=== PATIENT | male | born 1990 | race Caucasian/White ===

== ENCOUNTER → 2017-07-25 | Outpatient (CLI) | payer BC, SELFPAY | PROVIDERS: Visit Provider Emergency Medicine | DX: Z79.899 Other long term (current) drug therapy (principal) | CPT/HCPCS: 80305 ==

== ENCOUNTER → 2017-09-22 11:27 | Outpatient (CLI) | payer BC, SELFPAY ==
[2017-09-22 19:17] LABS: Amphetamine/Metha Screen,Urine Positive ng/mL (<1000); Barbiturates Screen,Urine Negative ng/mL (<200); Benzodiazepines Screen,Urine Negative ng/mL (200); Cannabinoid Screen,Urine Negative ng/mL (<50); Cocaine Screen,Urine Negative ng/g (<300); Methadone Screen,Urine Negative ng/mL (<300); Opiate Screen,Urine Negative ng/mL (<300); Phencyclidine Screen,Urine Negative ng/mL (<25)
== END ==
PROVIDERS: Visit Provider Emergency Medicine
DX: Z79.899 Other long term (current) drug therapy (principal)
CPT/HCPCS: 80305

== ENCOUNTER → 2017-11-01 11:40 | Outpatient (CLI) | payer BC, SELFPAY ==
[2017-11-01 15:23] LABS: Amphetamine/Metha Screen,Urine Positive ng/mL (<1000); Barbiturates Screen,Urine Negative ng/mL (<200); Benzodiazepines Screen,Urine Negative ng/mL (200); Cannabinoid Screen,Urine Negative ng/mL (<50); Cocaine Screen,Urine Negative ng/g (<300); Methadone Screen,Urine Negative ng/mL (<300); Opiate Screen,Urine Negative ng/mL (<300); Phencyclidine Screen,Urine Negative ng/mL (<25)
== END ==
PROVIDERS: Visit Provider Emergency Medicine
DX: Z79.899 Other long term (current) drug therapy (principal)
CPT/HCPCS: 80305

== ENCOUNTER → 2017-12-27 11:11 | Outpatient (REF) | payer BC, SELFPAY ==
[2017-12-27 18:08] LABS: Amphetamine/Metha Screen,Urine Positive ng/mL (<1000); Barbiturates Screen,Urine Negative ng/mL (<200); Benzodiazepines Screen,Urine Negative ng/mL (200); Cannabinoid Screen,Urine Negative ng/mL (<50); Cocaine Screen,Urine Negative ng/g (<300); Methadone Screen,Urine Negative ng/mL (<300); Opiate Screen,Urine Negative ng/mL (<300); Phencyclidine Screen,Urine Negative ng/mL (<25)
== END ==
LOC: LAB 11:11
PROVIDERS: Visit Provider Emergency Medicine
DX: Z79.899 Other long term (current) drug therapy (principal)
CPT/HCPCS: 80305

== ENCOUNTER → 2018-01-29 10:13 | Outpatient (REF) | payer BC, SELFPAY ==
[2018-01-29 14:21] LABS: Amphetamine/Metha Screen,Urine Positive ng/mL (<1000); Barbiturates Screen,Urine Negative ng/mL (<200); Benzodiazepines Screen,Urine Negative ng/mL (200); Cannabinoid Screen,Urine Negative ng/mL (<50); Cocaine Screen,Urine Negative ng/g (<300); Methadone Screen,Urine Negative ng/mL (<300); Opiate Screen,Urine Negative ng/mL (<300); Phencyclidine Screen,Urine Negative ng/mL (<25)
== END ==
LOC: LAB 10:13
PROVIDERS: Visit Provider Emergency Medicine
DX: Z79.899 Other long term (current) drug therapy (principal)
CPT/HCPCS: 80305

== ENCOUNTER → 2018-03-23 10:20 | Outpatient (REF) | payer BC, SELFPAY ==
[2018-03-23 14:45] LABS: Amphetamine/Metha Screen,Urine Positive ng/mL (<1000); Barbiturates Screen,Urine Negative ng/mL (<200); Benzodiazepines Screen,Urine Negative ng/mL (<200); Cannabinoid Screen,Urine Negative ng/mL (<50); Cocaine Screen,Urine Negative ng/mL (<300); Methadone Screen,Urine Negative ng/mL (<300); Opiate Screen,Urine Negative ng/mL (<300); Phencyclidine Screen,Urine Negative ng/mL (<25)
== END ==
LOC: LAB 10:20
PROVIDERS: Visit Provider Emergency Medicine
DX: F90.9 Attention-deficit hyperactivity disorder, unspecified type (principal); Z79.899 Other long term (current) drug therapy
CPT/HCPCS: 80305

== ENCOUNTER → 2018-05-23 16:15 | Outpatient (REF) | payer BC, SELFPAY ==
[2018-05-23 20:12] LABS: Amphetamine/Metha Screen,Urine Positive ng/mL (<1000); Barbiturates Screen,Urine Negative ng/mL (<200); Benzodiazepines Screen,Urine Negative ng/mL (<200); Cannabinoid Screen,Urine Negative ng/mL (<50); Cocaine Screen,Urine Negative ng/mL (<300); Methadone Screen,Urine Negative ng/mL (<300); Opiate Screen,Urine Negative ng/mL (<300); Phencyclidine Screen,Urine Negative ng/mL (<25)
== END ==
LOC: LAB 16:15
PROVIDERS: PCP Emergency Medicine; Visit Provider Emergency Medicine
DX: Z79.899 Other long term (current) drug therapy (principal)
CPT/HCPCS: 80305

== ENCOUNTER → 2018-07-20 14:00 | Outpatient (CLI) | payer BC, SELFPAY ==
[2018-07-20 16:28] LABS: Amphetamine/Metha Screen,Urine Positive ng/mL (<1000); Barbiturates Screen,Urine Negative ng/mL (<200); Benzodiazepines Screen,Urine Negative ng/mL (<200); Cannabinoid Screen,Urine Negative ng/mL (<50); Cocaine Screen,Urine Negative ng/mL (<300); Methadone Screen,Urine Positive ng/mL (<300); Opiate Screen,Urine Negative ng/mL (<300); Phencyclidine Screen,Urine Negative ng/mL (<25)
== END ==
PROVIDERS: Visit Provider Emergency Medicine
DX: Z79.899 Other long term (current) drug therapy (principal)
CPT/HCPCS: 80305

== ENCOUNTER → 2018-09-18 14:45 | Outpatient (CLI) | payer OTHER, SELFPAY ==
[2018-09-18 15:22] LABS: Amphetamine/Metha Screen,Urine Negative ng/mL (<1000); Barbiturates Screen,Urine Negative ng/mL (<200); Benzodiazepines Screen,Urine Negative ng/mL (<200); Cannabinoid Screen,Urine Negative ng/mL (<50); Cocaine Screen,Urine Negative ng/mL (<300); Methadone Screen,Urine Positive ng/mL (<300); Opiate Screen,Urine Negative ng/mL (<300); Phencyclidine Screen,Urine Negative ng/mL (<25)
[2018-09-26 00:08] LABS: Methadone Positive (.)
[2018-09-26 07:47] LABS: Methadone (GC/MS) 1708 ng/mL (Cutoff=100)
== END ==
PROVIDERS: Visit Provider Nurse Practitioner Family
DX: Z79.899 Other long term (current) drug therapy (principal)
CPT/HCPCS: 80305; 80358

== ENCOUNTER → 2018-11-14 14:01 | Outpatient (CLI) | payer OTHER, SELFPAY ==
[2018-11-14 14:58] LABS: Amphetamine/Metha Screen,Urine Positive ng/mL (<1000); Barbiturates Screen,Urine Negative ng/mL (<200); Benzodiazepines Screen,Urine Negative ng/mL (<200); Cannabinoid Screen,Urine Negative ng/mL (<50); Cocaine Screen,Urine Negative ng/mL (<300); Methadone Screen,Urine Negative ng/mL (<300); Opiate Screen,Urine Negative ng/mL (<300); Phencyclidine Screen,Urine Negative ng/mL (<25)
== END ==
PROVIDERS: Visit Provider Emergency Medicine
DX: Z79.899 Other long term (current) drug therapy (principal)
CPT/HCPCS: 80305

== ENCOUNTER → 2019-01-11 13:11 | Outpatient (CLI) | payer OTHER, SELFPAY ==
[2019-01-11 17:42] LABS: Amphetamine/Metha Screen,Urine Negative ng/mL (<1000); Barbiturates Screen,Urine Negative ng/mL (<200); Benzodiazepines Screen,Urine Negative ng/mL (<200); Cannabinoid Screen,Urine Negative ng/mL (<50); Cocaine Screen,Urine Negative ng/mL (<300); Methadone Screen,Urine Negative ng/mL (<300); Opiate Screen,Urine Negative ng/mL (<300); Phencyclidine Screen,Urine Negative ng/mL (<25)
== END ==
PROVIDERS: Visit Provider Emergency Medicine
DX: Z79.899 Other long term (current) drug therapy (principal)
CPT/HCPCS: 80305

== ENCOUNTER → 2019-03-12 14:35 | Outpatient (CLI) | payer OTHER, SELFPAY ==
[2019-03-12 17:02] LABS: Amphetamine/Metha Screen,Urine Positive ng/mL (<1000); Barbiturates Screen,Urine Negative ng/mL (<200); Benzodiazepines Screen,Urine Negative ng/mL (<200); Cannabinoid Screen,Urine Negative ng/mL (<50); Cocaine Screen,Urine Negative ng/mL (<300); Methadone Screen,Urine Negative ng/mL (<300); Opiate Screen,Urine Negative ng/mL (<300); Phencyclidine Screen,Urine Negative ng/mL (<25)
== END ==
PROVIDERS: Visit Provider Emergency Medicine
DX: Z79.899 Other long term (current) drug therapy (principal)
CPT/HCPCS: 80305

== ENCOUNTER → 2019-08-30 13:57 | Outpatient (CLI) | payer OTHER, SELFPAY ==
[2019-08-30 16:04] LABS: Amphetamine/Metha Screen,Urine Negative ng/mL (<1000); Barbiturates Screen,Urine Negative ng/mL (<200); Benzodiazepines Screen,Urine Negative ng/mL (<200); Cannabinoid Screen,Urine Negative ng/mL (<50); Cocaine Screen,Urine Negative ng/mL (<300); Methadone Screen,Urine Negative ng/mL (<300); Opiate Screen,Urine Negative ng/mL (<300); Phencyclidine Screen,Urine Negative ng/mL (<25)
[2019-09-05 14:41] LABS: Amphetamines Negative (Cutoff=500)
== END ==
PROVIDERS: Visit Provider Emergency Medicine
DX: Z79.899 Other long term (current) drug therapy (principal)
CPT/HCPCS: 80305; 80324

== ENCOUNTER 2020-04-21 05:11 | Emergency (ER) | payer OTHER, SELFPAY ==
[2020-04-21 05:17] VITALS: BP 175/95; PULSE 80; RESP 16; TEMP 36.7; O2SAT 98; BMI 26.2
--- NOTE | 2020-04-21 05:32 | HMH.EDDENT ---
ED Disposition Clinical Impression: Toothache Disposition: Home, Self-Care Condition on Discharge: Good Instructions: DI for Dental Pain Additional Instructions: see dentist for follow up Prescriptions: cephALEXin [Keflex 500mg Cap] 500 mg PO TID #30 cap Transmission Status: Pending to [facility] Referrals: Asa Flores MD [Primary Care Provider] - - Critical Care Critical Care Time: No Attestation: On 04/21/20, the high probability of a clinically significant, sudden or life threatening deterioration of the following system(s) required my full and direct attention, intervention and personal management. The time I documented below is in addition to time spent performing reported procedures but includes the following listed in this critical care notation. Medical Decision Making - Medical Records Medical records reviewed: Yes: I reviewed the patient's medical records. - Garrett Inquiry Pt receiving controlled substance: No Vital Signs: 04/21/20 05:17 Temperature 98.1 F Temperature Source Oral Pulse Rate [Right Brachial] 80 Respiratory Rate 16 Blood Pressure [Right Arm] 175/95 H Blood Pressure Mean [Right Arm] 121 Blood Pressure Source [Right Arm] Automatic Cuff Blood Pressure Position [Right Arm] Sitting 02 Sat by Pulse Oximetry 98 Oxygen Delivery Method Room Air - Lab Data Lab results reviewed: Yes: I reviewed the patient's lab results. Orders (Tests/Meds): ED MEDICATIONS Discontinued Medications Generic Name Dose Route Start Last Admin Trade Name Freq PRN Reason Stop Dose Admin Lidocaine HCl 15 ml 04/21/20 05:25 04/21/20 05:26 Lidocaine 2% Viscous Solution 15ml Udc PO 04/21/20 05:26 15 ml ONCE ONE Administration Dental HPI - General Chief complaint: Dental/Oral Stated complaint: abcess tooth Time Seen by Provider: 04/21/20 05:32 Mode of Arrival: Family Vehicle Source of Information: Patient, Medical Record Limitations: No Limitations Description of Symptoms (Recalled from ER Triage Doc. by RN): left upper jaw pain s/p tooth broken. thinks he has an abscess - History of Present Illness HPI Narrative: over the last few days lt upper dental pain MD Complaint: tooth pain Onset (ago): day(s) Duration: intermittent Severity: moderate Context: poor dental care Treatment prior to arrival: none - Related Data Home Medications Medication Instructions Recorded Confirmed buprenorphine 8 mg-naloxone 2 mg SUBLINGUAL 7 Days #7 tab 09/18/18 01/24/20 sublingual tablet Previous Rx's Medication Instructions Recorded hydroxyzine pamoate 25 mg capsule 25 mg PO QHS 90 Days #90 cap 02/05/19 lisinopril 5 mg tablet 5 mg PO DAILY #90 tab 09/30/19 dextroamphetamine-amphetamine 30 30 mg PO BID #60 tab 01/24/20 mg tablet cephALEXin [Keflex 500mg Cap] 500 mg PO TID #30 cap 04/21/20 Allergies Allergy/AdvReac Type Severity Reaction Status Date / Time No Known Allergies Allergy Verified 01/24/20 10:02 [facility] History - Hepatitis A Screen Drug use history?: No High risk sexual behaviors?: No History of sexually transmitted infection?: No Currently employed?: No Childcare worker?: No Do you have indoor plumbing?: Yes Do you have electricity?: Yes Attestation statement:: This patient has been screened for Hepatitis A risk factors. I have reviewed the patient's past medical history: Yes Medical History: Reports:: Anxiety, Hypertension Comment: adhd Laterality Cases: Bilateral: Tonsillectomy Other Surgeries: Yes: No Previous Surgery, Other Amputation: No Fractures: No - Social History Smoking Status: Former smoker Tobacco Type: smokeless tobacco # Packs/Day (cigarettes): 20 Alcohol Intake: never Substance Use Type: former substance user Occupational Status: employed - Psychiatric History Pschychiatric History:: Reports:: Anxiety Family Hx:: Diabetes, Heart Attack, Hypertension ROS Obtained: Yes All systems reviewed & no ad
[2020-04-21 05:41] VITALS: BP 117/85; PULSE 80; RESP 16; TEMP 36.8; O2SAT 98
== END 2020-04-21 05:43 | disposition home or self-care (01) ==
PROVIDERS: Emergency Provider Emergency Medicine; PCP Emergency Medicine
DX: K08.89 Other specified disorders of teeth and supporting structures (principal); K02.9 Dental caries, unspecified; Z87.891 Personal history of nicotine dependence
CPT/HCPCS: 99281

== ENCOUNTER → 2020-10-16 14:09 | Outpatient (CLI) | payer OTHER, SELFPAY ==
[2020-10-16 14:23] LABS: Alanine Aminotransferase 25 U/L (12-78); Albumin Level 4.6 g/dl (3.5-5.0); Albumin/Globulin Ratio 1.6 (1.1-1.8); Alkaline Phosphatase 75 U/L (38-126); Anion Gap 10.3 mEq/L (5-15); Aspartate Amino Transferase 24 U/L (17-59); Bilirubin,Total 0.2 mg/dl (0.2-1.3); Blood Urea Nitrogen 8 mg/dl (9-20); Calcium 9.5 mg/dl (8.4-10.2); Carbon Dioxide 28 mmol/L (22.0-30.0); Chloride 106 mmol/L (98-107); Chol/HDL Ratio 2.9 (1-3.5); Cholesterol 166 mg/dl (140-200); Estimated Glomerular Filt Rate 134 ml/min (>60); GFR (African American) 162 ML/MIN (>60); Globulin 2.8 g/dL (1.3-3.2); Glucose 78 mg/dl (74-100); HDL Cholesterol 58 mg/dl (40-60); Potassium 4.3 mmoL/L (3.5-5.1); Sodium 140 mmol/L (136-145); Total Protein,Serum 7.4 g/dl (6.3-8.2); Triglycerides 160 mg/dl (30-150); VLDL Cholesterol 32 mg/dL (0-40)
[2020-10-16 14:26] LABS: Basophils # 0.1 K/mm3 (0-0.2); Basophils % 1.1 % (0.1-2.0); Eosinophils # 0.2 K/mm3 (0.0-0.4); Eosinophils % 2.4 % (0.1-12.0); Hematocrit 47.6 % (42.0-52.0); Hemoglobin 15.3 g/dL (14.1-18.0); Lymphocytes # 3.1 K/mm3 (0.7-4.5); Lymphocytes % 42.7 % (10-50); Mean Corpuscular HGB Conc 32.2 g/dL (31.8-35.4); Mean Corpuscular Hemoglobin 29.4 pg (27.0-31.2); Mean Corpuscular Volume 91.4 fl (80-94); Mean Platelet Volume 7.3 fl (7.4-10.4); Monocytes # 0.4 K/mm3 (0.1-1.0); Monocytes % 6.2 % (1.7-9.3); Neutrophils # 3.4 K/mm3 (1.8-7.8); Neutrophils % 47.6 % (37.0-80.0); Platelet Count 311 K/mm3 (142-424); Red Blood Count 5.21 M/mm3 (4.60-6.20); Red Cell Distribution Width 13.3 % (11.5-17.5); White Blood Count 7.1 K/mm3 (4.8-10.8)
[2020-10-16 14:34] LABS: Direct LDL Cholesterol 83.52 mg/dL (100-129)
[2020-10-16 14:40] LABS: Free T4 (Free Thyroxine) 0.85 ng/dl (0.78-2.19)
[2020-10-16 14:41] LABS: 25-OH Vitamin D, Total 15.8 ng/mL (30-100)
[2020-10-16 14:42] LABS: Barbiturates Screen,Urine Negative ng/ml (<200)
[2020-10-16 14:44] LABS: Benzodiazepines Screen,Urine Negative ng/ml (<200)
[2020-10-16 14:45] LABS: Cannabinoid Screen,Urine Negative ng/ml (<50); Cocaine Screen,Urine Negative ng/ml (<300)
[2020-10-16 14:46] LABS: Methadone Screen,Urine Negative ng/ml (<300)
[2020-10-16 14:47] LABS: Opiate Screen,Urine Negative ng/ml (<300); Phencyclidine Screen,Urine Negative ng/ml (<25)
[2020-10-16 14:54] LABS: Thyroid Stimulating Hormone 1.23 uIU/mL (0.465-4.68)
[2020-10-21 18:47] LABS: Amphetamine Positive (.); Amphetamines Positive (.); Methamphetamine Positive (.)
[2020-10-21 22:29] LABS: Amphetamine (GC/MS) 1396 ng/mL (Cutoff=500); Methamphetamine (GC/MS) >3000 ng/mL (Cutoff=500)
== END ==
PROVIDERS: Visit Provider Emergency Medicine
DX: I10 Essential (primary) hypertension (principal); E55.9 Vitamin D deficiency, unspecified; Z79.899 Other long term (current) drug therapy
CPT/HCPCS: 80053; 80061; 80305; 80324; 82306; 84439; 84443; 85025

== ENCOUNTER 2020-11-06 21:10 | Emergency (ER) | payer OTHER, SELFPAY ==
[2020-11-06 21:52] VITALS: BP 147/86; PULSE 99; RESP 18; TEMP 37.1; O2SAT 99; BMI 26.6
--- NOTE | 2020-11-06 22:14 | HMH.EDSKAF ---
ED Disposition Clinical Impression: Shingles Qualifiers: Herpes zoster complications: without complications Qualified Code(s): B02.9 - Zoster without complications Disposition: Home, Self-Care Condition on Discharge: Good Instructions: DI for Shingles Additional Instructions: use meds and see pcp for follow up Prescriptions: Acyclovir [Acyclovir 800mg tab] 800 mg PO 5XDAY #35 tab Transmission Status: Pending to [facility] predniSONE [Prednisone 20mg Tab] 20 mg PO BID #10 tab Transmission Status: Pending to [facility] Ketorolac Tromethamine [Toradol 10mg tablet] 10 mg PO Q6H 5 Days #12 tab Transmission Status: Pending to [facility] Referrals: Asa Flores MD [Primary Care Provider] - - Critical Care Critical Care Time: No Attestation: On 11/06/20, the high probability of a clinically significant, sudden or life threatening deterioration of the following system(s) required my full and direct attention, intervention and personal management. The time I documented below is in addition to time spent performing reported procedures but includes the following listed in this critical care notation. Medical Decision Making - Medical Records Medical records reviewed: Yes: I reviewed the patient's medical records. - Garrett Inquiry Pt receiving controlled substance: No Vital Signs: 11/06/20 21:52 Temperature 98.8 F Temperature Source Oral Pulse Rate [Right] 99 H Respiratory Rate 18 Blood Pressure [Right Arm] 147/86 H Blood Pressure Mean [Right Arm] 106 Blood Pressure Source [Right Arm] Automatic Cuff Blood Pressure Position [Right Arm] Sitting 02 Sat by Pulse Oximetry 99 Oxygen Delivery Method Room Air - Lab Data Lab results reviewed: Yes: I reviewed the patient's lab results. Orders (Tests/Meds): ED MEDICATIONS Discontinued Medications Generic Name Dose Route Start Last Admin Trade Name Freq PRN Reason Stop Dose Admin Acyclovir 800 mg 11/06/20 22:01 11/06/20 22:05 Acyclovir 400mg Tab PO 11/06/20 22:02 800 mg ONCE ONE Administration Ketorolac Tromethamine 60 mg 11/06/20 22:01 11/06/20 22:05 Ketorolac 60mg/2ml Vial IM 11/06/20 22:02 60 mg ONCE ONE Administration Prednisone 40 mg 11/06/20 22:00 11/06/20 22:05 Prednisone 20mg Tab PO 11/06/20 22:01 40 mg ONCE ONE Administration Medical Decision Narrative: pt with shingles Skin/Abscess/FB HPI - General Chief complaint: Skin/Abscess/Foreign Body Stated complaint: RASH UNDER ARM AND CHEST Time Seen by Provider: 11/06/20 22:14 Mode of Arrival: Ambulatory Source of Information: Patient, Medical Record Limitations: No Limitations Description of Symptoms (Recalled from ER Triage Doc. by RN): Pt has rash to left flank that is painfull, unknown source. - History of Present Illness HPI narrative: acute onset of rash to chest over the last few days MD complaint: rash Onset (ago): day(s) Tetanus up to date: unsure Location: chest Severity: moderate Associated symptoms: denies other symptoms Treatments prior to arrival: none - Related Data Home Medications Medication Instructions Recorded Confirmed buprenorphine 8 mg-naloxone 2 mg SUBLINGUAL 7 Days #7 tab 09/18/18 10/16/20 sublingual tablet Previous Rx's Medication Instructions Recorded hydroxyzine pamoate 25 mg capsule 25 mg PO QHS 90 Days #90 cap 02/05/19 lisinopril 5 mg tablet 5 mg PO DAILY #90 tab 09/30/19 dextroamphetamine-amphetamine 30 30 mg PO BID #60 tab 10/16/20 mg tablet cholecalciferol (vitamin D3) 1,250 1,250 mcg PO WEEKLY #10 cap 10/20/20 mcg (50,000 unit) capsule ergocalciferol (vitamin D2) 1,250 50,000 unit PO QWEEK 90 Days #12 10/21/20 mcg (50,000 unit) capsule cap Acyclovir [Acyclovir 800mg tab] 800 mg PO 5XDAY #35 tab 11/06/20 Ketorolac Tromethamine [Toradol 10 mg PO Q6H 5 Days #12 tab 11/06/20 10mg tablet] predniSONE [Prednisone 20mg 20 mg PO BID #10
[2020-11-06 22:25] VITALS: BP 144/82; PULSE 92; RESP 20; TEMP 37.1; O2SAT 99
== END 2020-11-06 22:26 | disposition home or self-care (01) ==
PROVIDERS: Emergency Provider Emergency Medicine; PCP Emergency Medicine
DX: B02.9 Zoster without complications (principal); I10 Essential (primary) hypertension; F41.9 Anxiety disorder, unspecified; Z79.899 Other long term (current) drug therapy
CPT/HCPCS: 96372; 99281

== ENCOUNTER 2020-11-13 08:43 | Emergency (ER) | payer OTHER, SELFPAY ==
[2020-11-13 08:44] VITALS: BP 172/94; PULSE 96; RESP 18; TEMP 36.6; O2SAT 99; BMI 25.8
--- NOTE | 2020-11-13 08:53 | CT_ITS ---
PROCEDURE: CT SOFT TISSUE NECK W CON CLINICAL HISTORY: abscess Diffuse soft tissue swelling with erythema right-sided face upper neck COMPARISON: No exams were available for comparison TECHNIQUE: Oral Contrast: None IV Contrast: 100 mL Optiray 370 Axial images obtained with sagittal and coronal reformats. All CT scans at the facility use one or more dose reduction, viz: automated exposure control, ma/kV adjustment per patient size (including targeted exams where dose is matched to indication, i.e. head), or iterative reconstruction technique. FINDINGS: There is diffuse increased attenuation of the subcutaneous tissues right cheek paralleling the right mandibular ramus with mild diffuse enlargement of the right submandibular gland with a least 2 slightly enhancing but normal size nodes between the submandibular gland and the platysma muscle. The masseter muscles normal and symmetrical bilaterally. Parotid glands are normal. Carotid arteries and jugular veins appear normal. There are scattered normal size nodes in the jugular digastric chain right side when compared to the left. IMPRESSION: Findings most consistent with diffuse cellulitis right side of the lower cheek and upper neck with asymmetric enlargement and inflammatory changes of the right submandibular gland without true abscess formation Dictated by: Dr. Florian Russo MD 11/13/2020 10:27 Dr. Florian Russo MD in [place] 11/13/2020 10:27
--- NOTE | 2020-11-13 08:53 | CT_ITS ---
PROCEDURE: CT FACIAL BONES W CON CLINICAL HISTORY: abscess Diffuse soft tissue swelling right-side of face COMPARISON: No exams were available for comparison TECHNIQUE: Axial images obtained with sagittal and coronal reformats. All CT scans at the facility use one or more dose reduction, viz: automated exposure control, ma/kV adjustment per patient size (including targeted exams where dose is matched to indication, i.e. head), or iterative reconstruction technique. FINDINGS: Bones: Unremarkable. No fracture, lytic, or blastic changes evident. Extracranial soft tissues: There is thickening and diffuse increased attenuation of the subcutaneous tissues right cheek along the side the right mandibular ramus consistent with diffuse cellulitis. There is enlargement of the right submandibular gland with somewhat irregular radiolucencies within the gland suggesting an inflammatory response. There are couple of small nodes just between the platysma muscle and the submandibular gland. No true fluid collection within the subcutaneous tissues to suggest an abscess formation. Sinuses: Unremarkable. No air-fluid levels or significant mucosal thickening. Orbits: Unremarkable. Other: The visualized portions of the carotid arteries and jugular veins appear normal bilaterally. IMPRESSION: Probable diffuse cellulitis involving the skin and subcutaneous tissues right side of the face and cheek with associated increase in size and inflammatory response of the right submandibular gland without evidence of abscess formation. Dictated by: Dr. Florian Russo MD 11/13/2020 10:21 Dr. Florian Russo MD in [place] 11/13/2020 10:21
--- NOTE | 2020-11-13 08:56 | HMH.EDGENADL ---
ED Disposition Clinical Impression: Facial cellulitis, Toothache, Dental caries Disposition: Home, Self-Care Condition on Discharge: Good Instructions: Cellulitis, DI for Dental Pain Additional Instructions: Take the antibiotics to completion. If your pain and swelling has not improved by day two please return to the ED for further evaluation. Treat fever and pain with tylenol and ibuprofen. Prescriptions: Amoxicillin/Potassium Clav [Augmentin 875-125 Tablet] 1 tab PO Q12H 10 Days #20 tab Transmission Status: Pending to [facility] clindamycin HCL [Clindamycin HCl] 300 mg PO QID 10 Days #40 cap Transmission Status: Pending to [facility] Referrals: Asa Flores MD [Primary Care Provider] - Time of Disposition: 11:13 - Critical Care Critical Care Time: No Attestation: On 11/13/20, the high probability of a clinically significant, sudden or life threatening deterioration of the following system(s) required my full and direct attention, intervention and personal management. The time I documented below is in addition to time spent performing reported procedures but includes the following listed in this critical care notation. Medical Decision Making - Medical Records Medical records reviewed: Yes: I reviewed the patient's medical records. - Garrett Inquiry Pt receiving controlled substance: No Vital Signs: 11/13/20 08:44 Temperature 97.8 F Temperature Source Oral Pulse Rate [Left Radial] 96 H Respiratory Rate 18 Blood Pressure [Right Arm] 172/94 H Blood Pressure Mean [Right Arm] 120 Blood Pressure Source [Right Arm] Automatic Cuff Blood Pressure Position [Right Arm] Sitting 02 Sat by Pulse Oximetry 99 Oxygen Delivery Method Room Air - Lab Data Lab Results 11/13/20 09:05: WBC 16.2 H, RBC 5.38, Hgb 16.2, Hct 48.8, MCV 90.5, MCH 30.2, MCHC 33.3, RDW 14.0, Plt Count 324, MPV 7.3 L, Neut % (Auto) 71.0, Lymph % (Auto) 19.4, [place] % (Auto) 7.7, Eos % (Auto) 1.1, Baso % (Auto) 0.7, Neut # (Auto) 11.5 H, Lymph # (Auto) 3.2, [place] # (Auto) 1.3 H, Eos # (Auto) 0.2, Baso # (Auto) 0.1, Total Counted 100, Neutrophils % (Manual) 79 H, Lymphocytes % (Manual) 18, Monocytes % (Manual) 3, Platelet Estimate Normal, RBC Morphology Normal 11/13/20 09:05: Sodium 140, Potassium 4.6, Chloride 103, Carbon Dioxide 32 H, Anion Gap 9.6, BUN 16, Creatinine 0.90, Estimated Creat Clear 133, Estimated GFR 100, Est GFR ( Amer) 122, Glucose 100, Calcium 9.7, Total Bilirubin 0.7, AST 20, ALT 36, Alkaline Phosphatase 66, C-Reactive Protein 39.2 H, Total Protein 7.6, Albumin 4.8, Globulin 2.8, Albumin/Globulin Ratio 1.7 Result diagrams: 11/13/20 09:05 11/13/20 09:05 Orders (Tests/Meds): ED MEDICATIONS Discontinued Medications Generic Name Dose Route Start Last Admin Trade Name Freq PRN Reason Stop Dose Admin Amoxicillin/Clavulanate Potassium 2 each 11/13/20 10:45 11/13/20 10:49 Amoxicillin/Pot Clavulan 500mg Tablet PO 11/13/20 10:46 2 each ONCE ONE Administration Protocol Clindamycin HCl 300 mg 11/13/20 10:45 11/13/20 10:49 Clindamycin 150mg Capsule PO 11/13/20 10:46 300 mg ONCE ONE Administration Protocol Iopamidol 100 ml 11/13/20 09:55 11/13/20 09:56 Iopamidol-370 (76%);100ml Bottle IV 11/13/20 09:56 100 ml ONCE ONE Administration Ketorolac Tromethamine 30 mg 11/13/20 09:08 11/13/20 09:09 Ketorolac 30mg/Ml Vial IV 11/13/20 09:09 30 mg ONCE ONE Administration Oxycodone/Acetaminophen 1 each 11/13/20 11:13 11/13/20 11:14 Oxycodone 5mg W/Apap 325mg Tablet PO 11/13/20 11:14 1 each ONCE ONE Administration Sodium Chloride 10 ml 11/13/20 09:55 11/13/20 09:56 Sodium Chloride 0.9% 10ml Syr (Rad Only) IV 11/13/20 09:56 10 ml ONCE ONE Administration - CT Data CT Scan: Head Time Received: 10:[address] Reviewed: Yes: I have reviewed the patient's CT results, I have viewed the radiologist's interpretation Preliminary Findings: Ab
[2020-11-13 09:14] LABS: Basophils # 0.1 K/mm3 (0-0.2); Basophils % 0.7 % (0.1-2.0); Eosinophils # 0.2 K/mm3 (0.0-0.4); Eosinophils % 1.1 % (0.1-12.0); Hematocrit 48.8 % (42.0-52.0); Hemoglobin 16.2 g/dL (14.1-18.0); Lymphocytes # 3.2 K/mm3 (0.7-4.5); Lymphocytes % 19.4 % (10-50); Mean Corpuscular HGB Conc 33.3 g/dL (31.8-35.4); Mean Corpuscular Hemoglobin 30.2 pg (27.0-31.2); Mean Corpuscular Volume 90.5 fl (80-94); Mean Platelet Volume 7.3 fl (7.4-10.4); Monocytes # 1.3 K/mm3 (0.1-1.0); Monocytes % 7.7 % (1.7-9.3); Neutrophils # 11.5 K/mm3 (1.8-7.8); Platelet Count 324 K/mm3 (142-424); Red Blood Count 5.38 M/mm3 (4.60-6.20); White Blood Count 16.2 K/mm3 (4.8-10.8)
[2020-11-13 09:16] LABS: Chloride 103 mmol/L (98-107); MANUAL DIFFERENTIAL MANUAL DIFFERENTIAL (MANUAL DIFF); Potassium 4.6 mmoL/L (3.5-5.1); Sodium 140 mmol/L (136-145)
[2020-11-13 09:19] LABS: Alanine Aminotransferase 36 U/L (12-78); Albumin Level 4.8 g/dl (3.5-5.0); Albumin/Globulin Ratio 1.7 (1.1-1.8); Alkaline Phosphatase 66 U/L (38-126); Anion Gap 9.6 mEq/L (5-15); Aspartate Amino Transferase 20 U/L (17-59); Bilirubin,Total 0.7 mg/dl (0.2-1.3); Blood Urea Nitrogen 16 mg/dl (9-20); Calcium 9.7 mg/dl (8.4-10.2); Carbon Dioxide 32 mmol/L (22.0-30.0); Creatinine Clearance Estimated 133 mL/min (50-200); Estimated Glomerular Filt Rate 100 ml/min (>60); GFR (African American) 122 ML/MIN (>60); Globulin 2.8 g/dL (1.3-3.2); Glucose 100 mg/dl (74-100); Total Protein,Serum 7.6 g/dl (6.3-8.2)
[2020-11-13 09:24] LABS: C-Reactive Protein 39.2 mg/L (0-4)
[2020-11-13 09:35] LABS: Lymphocytes % 18 % (10-50); Monocytes % 3 % (2-9); Neutrophils % 79 % (42-76); Platelet Estimate Normal; RBC Morphology Normal; Total Cells Counted 100
--- NOTE | 2020-11-13 09:46 | PC.NURSE ---
PT GOING TO CT
[2020-11-13 11:36] VITALS: BP 126/68; PULSE 78; RESP 16; TEMP 36.6; O2SAT 98
== END 2020-11-13 11:37 | disposition home or self-care (01) ==
PROVIDERS: Emergency Provider Student in an Organized Health Care Education/Training Program; PCP Emergency Medicine
DX: L03.211 Cellulitis of face (principal); K02.9 Dental caries, unspecified; I10 Essential (primary) hypertension; F41.9 Anxiety disorder, unspecified; F17.210 Nicotine dependence, cigarettes, uncomplicated; Z79.899 Other long term (current) drug therapy
CPT/HCPCS: 70487; 70491; 80053; 85007; 85025; 86140; 96365; 99282; Q9967

== ENCOUNTER → 2020-11-26 13:46 | Outpatient (CLI) | payer OTHER, SELFPAY ==
[2020-11-26 15:19] LABS: Amphetamine/Metha Screen,Urine Negative ng/ml (<1000)
[2020-11-26 15:20] LABS: Barbiturates Screen,Urine Negative ng/ml (<200); Benzodiazepines Screen,Urine Negative ng/ml (<200)
[2020-11-26 15:21] LABS: Cannabinoid Screen,Urine Negative ng/ml (<50)
[2020-11-26 15:24] LABS: Cocaine Screen,Urine Negative ng/ml (<300); Methadone Screen,Urine Negative ng/ml (<300)
[2020-11-26 15:25] LABS: Opiate Screen,Urine Negative ng/ml (<300); Phencyclidine Screen,Urine Negative ng/ml (<25)
== END ==
PROVIDERS: Visit Provider Emergency Medicine
DX: Z79.899 Other long term (current) drug therapy (principal)
CPT/HCPCS: 80305

== ENCOUNTER → 2021-01-22 13:22 | Outpatient (CLI) | payer OTHER, SELFPAY ==
[2021-01-22 14:27] LABS: Barbiturates Screen,Urine Negative ng/ml (<200)
[2021-01-22 14:28] LABS: Amphetamine/Metha Screen,Urine Negative ng/ml (<1000); Benzodiazepines Screen,Urine Negative ng/ml (<200)
[2021-01-22 14:29] LABS: Cannabinoid Screen,Urine Negative ng/ml (<50)
[2021-01-22 14:30] LABS: Cocaine Screen,Urine Negative ng/ml (<300); Methadone Screen,Urine Negative ng/ml (<300)
[2021-01-22 14:31] LABS: Opiate Screen,Urine Negative ng/ml (<300)
[2021-01-22 14:32] LABS: Phencyclidine Screen,Urine Negative ng/ml (<25)
== END ==
PROVIDERS: Visit Provider Emergency Medicine
DX: F90.9 Attention-deficit hyperactivity disorder, unspecified type (principal); Z79.899 Other long term (current) drug therapy
CPT/HCPCS: 80305

== ENCOUNTER → 2021-03-22 14:36 | Outpatient (CLI) | payer OTHER, SELFPAY ==
[2021-03-22 16:03] LABS: Amphetamine/Metha Screen,Urine Positive ng/ml (<1000)
[2021-03-22 16:04] LABS: Barbiturates Screen,Urine Negative ng/ml (<200); Benzodiazepines Screen,Urine Negative ng/ml (<200)
[2021-03-22 16:05] LABS: Cannabinoid Screen,Urine Negative ng/ml (<50)
[2021-03-22 16:06] LABS: Cocaine Screen,Urine Negative ng/ml (<300); Methadone Screen,Urine Negative ng/ml (<300)
[2021-03-22 16:10] LABS: Opiate Screen,Urine Negative ng/ml (<300); Phencyclidine Screen,Urine Negative ng/ml (<25)
== END ==
PROVIDERS: Visit Provider Emergency Medicine
DX: Z79.899 Other long term (current) drug therapy (principal)
CPT/HCPCS: 80305

== ENCOUNTER → 2021-07-20 13:43 | Outpatient (CLI) | payer OTHER, SELFPAY ==
[2021-07-20 16:12] LABS: Amphetamine/Metha Screen,Urine Negative ng/ml (<1000)
[2021-07-20 16:13] LABS: Barbiturates Screen,Urine Negative ng/ml (<200)
[2021-07-20 16:14] LABS: Cannabinoid Screen,Urine Negative ng/ml (<50)
[2021-07-20 16:15] LABS: Cocaine Screen,Urine Negative ng/ml (<300)
[2021-07-20 16:16] LABS: Methadone Screen,Urine Negative ng/ml (<300)
[2021-07-20 16:20] LABS: Opiate Screen,Urine Negative ng/ml (<300)
[2021-07-20 16:21] LABS: Phencyclidine Screen,Urine Negative ng/ml (<25)
[2021-07-20 16:25] LABS: Benzodiazepines Screen,Urine Negative ng/ml (<200)
== END ==
PROVIDERS: Visit Provider Emergency Medicine
DX: F90.9 Attention-deficit hyperactivity disorder, unspecified type (principal)
CPT/HCPCS: 80305

== ENCOUNTER → 2021-09-17 16:00 | Outpatient (CLI) | payer OTHER, SELFPAY ==
[2021-09-17 18:48] LABS: Barbiturates Screen,Urine Negative ng/ml (<200); Benzodiazepines Screen,Urine Negative ng/ml (<200)
[2021-09-17 18:49] LABS: Cannabinoid Screen,Urine Negative ng/ml (<50)
[2021-09-17 18:50] LABS: Amphetamine/Metha Screen,Urine Positive ng/ml (<1000); Cocaine Screen,Urine Negative ng/ml (<300)
[2021-09-17 18:51] LABS: Methadone Screen,Urine Negative ng/ml (<300)
[2021-09-17 18:52] LABS: Opiate Screen,Urine Negative ng/ml (<300); Phencyclidine Screen,Urine Negative ng/ml (<25)
== END ==
PROVIDERS: Visit Provider Emergency Medicine
DX: F90.9 Attention-deficit hyperactivity disorder, unspecified type (principal)
CPT/HCPCS: 80305

== ENCOUNTER → 2021-11-10 14:15 | Outpatient (CLI) | payer OTHER, SELFPAY ==
[2021-11-10 18:36] LABS: Barbiturates Screen,Urine Negative ng/ml (<200)
[2021-11-10 18:37] LABS: Benzodiazepines Screen,Urine Negative ng/ml (<200)
[2021-11-10 18:38] LABS: Amphetamine/Metha Screen,Urine Negative ng/ml (<1000); Cocaine Screen,Urine Negative ng/ml (<300)
[2021-11-10 18:39] LABS: Cannabinoid Screen,Urine Negative ng/ml (<50); Methadone Screen,Urine Negative ng/ml (<300)
[2021-11-10 18:40] LABS: Opiate Screen,Urine Negative ng/ml (<300)
[2021-11-10 18:41] LABS: Phencyclidine Screen,Urine Negative ng/ml (<25)
== END ==
PROVIDERS: Visit Provider Nurse Practitioner Family
DX: Z79.899 Other long term (current) drug therapy (principal)
CPT/HCPCS: 80305

== ENCOUNTER → 2022-04-08 16:20 | Outpatient (CLI) | payer SELFPAY ==
[2022-04-08 18:31] LABS: Barbiturates Screen,Urine Negative ng/ml (<200)
[2022-04-08 18:32] LABS: Benzodiazepines Screen,Urine Negative ng/ml (<200)
[2022-04-08 18:33] LABS: Cannabinoid Screen,Urine Negative ng/ml (<50); Cocaine Screen,Urine Negative ng/ml (<300)
[2022-04-08 18:34] LABS: Methadone Screen,Urine Negative ng/ml (<300)
[2022-04-08 18:35] LABS: Opiate Screen,Urine Negative ng/ml (<300); Phencyclidine Screen,Urine Negative ng/ml (<25)
[2022-04-08 20:06] LABS: Amphetamine/Metha Screen,Urine Positive ng/ml (<1000)
== END ==
PROVIDERS: PCP Nurse Practitioner Family; Visit Provider Nurse Practitioner Family
DX: Z79.899 Other long term (current) drug therapy (principal)
CPT/HCPCS: 80305

== ENCOUNTER → 2022-07-08 14:35 | Outpatient (CLI) | payer OTHER, SELFPAY ==
[2022-07-08 20:06] LABS: Amphetamine/Metha Screen,Urine Positive ng/ml (<1000)
[2022-07-08 20:07] LABS: Barbiturates Screen,Urine Negative ng/ml (<200)
[2022-07-08 20:08] LABS: Benzodiazepines Screen,Urine Negative ng/ml (<200); Cannabinoid Screen,Urine Negative ng/ml (<50)
[2022-07-08 20:09] LABS: Cocaine Screen,Urine Negative ng/ml (<300); Methadone Screen,Urine Negative ng/ml (<300)
[2022-07-08 20:10] LABS: Opiate Screen,Urine Negative ng/ml (<300)
[2022-07-08 20:11] LABS: Phencyclidine Screen,Urine Negative ng/ml (<25)
== END ==
PROVIDERS: PCP Emergency Medicine; Visit Provider Emergency Medicine
DX: Z79.899 Other long term (current) drug therapy (principal)
CPT/HCPCS: 80305

== ENCOUNTER → 2022-09-06 12:35 | Outpatient (CLI) | payer OTHER, SELFPAY ==
[2022-09-06 20:22] LABS: Barbiturates Screen,Urine Negative ng/ml (<200)
[2022-09-06 20:24] LABS: Benzodiazepines Screen,Urine Negative ng/ml (<200); Cannabinoid Screen,Urine Negative ng/ml (<50)
[2022-09-06 20:25] LABS: Cocaine Screen,Urine Negative ng/ml (<300)
[2022-09-06 20:26] LABS: Methadone Screen,Urine Negative ng/ml (<300); Opiate Screen,Urine Negative ng/ml (<300)
[2022-09-06 20:27] LABS: Phencyclidine Screen,Urine Negative ng/ml (<25)
[2022-09-06 21:11] LABS: Amphetamine/Metha Screen,Urine Positive ng/ml (<1000)
== END ==
PROVIDERS: PCP Emergency Medicine; Visit Provider Emergency Medicine
DX: Z79.899 Other long term (current) drug therapy (principal)
CPT/HCPCS: 80305

== ENCOUNTER → 2022-11-09 11:30 | Outpatient (CLI) | payer OTHER, SELFPAY ==
[2022-11-09 13:34] LABS: Basophils # 0.1 K/mm3 (0-0.2); Eosinophils # 0.3 K/mm3 (0.0-0.4); Eosinophils % 2.9 % (0.1-12.0); Hematocrit 48.5 % (42.0-52.0); Hemoglobin 16.1 g/dL (14.1-18.0); Lymphocytes # 3.3 K/mm3 (0.7-4.5); Lymphocytes % 30.4 % (10-50); Mean Corpuscular HGB Conc 33.2 g/dL (31.8-35.4); Mean Corpuscular Hemoglobin 30.4 pg (27.0-31.2); Mean Corpuscular Volume 91.4 fl (80-94); Mean Platelet Volume 7.2 fl (7.4-10.4); Monocytes # 0.9 K/mm3 (0.1-1.0); Monocytes % 8.2 % (1.7-9.3); Neutrophils # 6.3 K/mm3 (1.8-7.8); Neutrophils % 57.5 % (37.0-80.0); Platelet Count 424 K/mm3 (142-424); White Blood Count 10.9 K/mm3 (4.8-10.8)
[2022-11-09 13:41] LABS: Chloride 104 mmol/L (98-107)
[2022-11-09 13:42] LABS: Potassium 4.5 mmoL/L (3.5-5.1); Sodium 141 mmol/L (136-145)
[2022-11-09 13:44] LABS: Alanine Aminotransferase 19 U/L (12-78); Albumin Level 4.6 g/dl (3.5-5.0); Albumin/Globulin Ratio 1.7 (1.1-1.8); Alkaline Phosphatase 90 U/L (38-126); Anion Gap 12.5 mEq/L (5-15); Aspartate Amino Transferase 23 U/L (17-59); Bilirubin,Total 0.3 mg/dl (0.2-1.3); Blood Urea Nitrogen 15 mg/dl (9-20); Carbon Dioxide 29 mmol/L (22.0-30.0); Estimated Glomerular Filt Rate 114 ml/min (>60); GFR (African American) 137 ML/MIN (>60); Globulin 2.7 g/dL (1.3-3.2); Total Protein,Serum 7.3 g/dl (6.3-8.2)
[2022-11-09 13:45] LABS: Calcium 9.6 mg/dl (8.4-10.2); Cholesterol 154 mg/dl (140-200); Glucose 79 mg/dl (74-100); Triglycerides 162 mg/dl (30-150); VLDL Cholesterol 32 mg/dL (0-40)
[2022-11-09 13:56] LABS: Direct LDL Cholesterol 94.69 mg/dL (100-129)
[2022-11-09 14:00] LABS: T4 (Thyroxine) 7.2 ug/dl (5.53-11.0)
[2022-11-09 14:14] LABS: Thyroid Stimulating Hormone 1.36 uIU/mL (0.465-4.68)
[2022-11-09 16:08] LABS: Chol/HDL Ratio 3.5 (1-3.5); HDL Cholesterol 44 mg/dl (40-60)
[2022-11-09 17:22] LABS: 25-OH Vitamin D, Total 26.7 ng/mL (30-100)
[2022-11-09 18:41] LABS: Amphetamine/Metha Screen,Urine Positive ng/ml (<1000); Barbiturates Screen,Urine Negative ng/ml (<200)
[2022-11-09 18:42] LABS: Benzodiazepines Screen,Urine Negative ng/ml (<200)
[2022-11-09 18:43] LABS: Cannabinoid Screen,Urine Negative ng/ml (<50); Cocaine Screen,Urine Negative ng/ml (<300)
[2022-11-09 18:44] LABS: Methadone Screen,Urine Negative ng/ml (<300)
[2022-11-09 18:45] LABS: Opiate Screen,Urine Negative ng/ml (<300)
[2022-11-09 18:46] LABS: Phencyclidine Screen,Urine Negative ng/ml (<25)
== END ==
PROVIDERS: PCP Emergency Medicine; Visit Provider Emergency Medicine
DX: Z79.899 Other long term (current) drug therapy (principal); E55.9 Vitamin D deficiency, unspecified
CPT/HCPCS: 80053; 80061; 80305; 82306; 84436; 84443; 85025

== ENCOUNTER 2023-08-24 20:21 | Outpatient (CLI) | payer OTHER, SELFPAY ==
[2023-08-24 19:37] LABS: Barbiturates Screen,Urine Negative ng/ml (<200)
[2023-08-24 19:38] LABS: Benzodiazepines Screen,Urine Negative ng/ml (<200)
[2023-08-24 19:39] LABS: Cannabinoid Screen,Urine Negative ng/ml (<50); Cocaine Screen,Urine Negative ng/ml (<300)
[2023-08-24 19:40] LABS: Methadone Screen,Urine Negative ng/ml (<300)
[2023-08-24 19:41] LABS: Opiate Screen,Urine Negative ng/ml (<300); Phencyclidine Screen,Urine Negative ng/ml (<25)
[2023-08-30 12:30] LABS: Amphetamine Positive (.); Amphetamine (GC/MS) 818 ng/mL (Cutoff=500); Amphetamines Positive (.); Methamphetamine Positive (.); Methamphetamine (GC/MS) >3000 ng/mL (Cutoff=500)
== END 2023-08-24 23:59 ==
LOC: LAB.DROPOF 20:22
PROVIDERS: Visit Provider Family Medicine
DX: Z79.899 Other long term (current) drug therapy (principal)
CPT/HCPCS: 80307; 80324